=== PATIENT | male | born 1970 | race African-American/Black ===

== ENCOUNTER 2017-09-19 23:02 | Emergency (ER) | payer MEDICAID ==
[~2017-09-19] VITALS: Ht 172.7 cm; Wt 68.0 kg
--- NOTE | 2017-09-19 23:33 | NUR ---
PT AA/OX4. COMPLAINING OF SUICIDAL THOUGHTS. NO S/S OF SOB. NAD. VSS. WILL CONTINUE TO MONITOR. SAFETY MEASURES IN PLACE. CALL LIGHT WITHIN REACH. AWAITING MD ORDERS. Addendum: 09/19/17 at 2337 by LETICIA DANGER TO SELF
[2017-09-19 23:40] LABS: BASOPHILS % (AUTO) 0.5 % (0.0-2.0); EOSINOPHILS % (AUTO) 1.1 % (0.0-6.0); HEMATOCRIT 43 % (39-51); HEMOGLOBIN 13.9 g/dL (13.5-17.5); LYMPHOCYTES # (AUTO) 2.2 /CMM (0.8-4.8); LYMPHOCYTES % (AUTO) 32.2 % (20.0-44.0); MEAN CORPUSCULAR HEMOGLOBIN 33 PG (26.0-33.0); MEAN CORPUSCULAR HGB CONC 33 g/dl (31.0-36.0); MEAN CORPUSCULAR VOLUME 102 fL (80-96); MONOCYTES # (AUTO) 0.4 /CMM (0.1-1.30); MONOCYTES % (AUTO) 5.1 % (2.0-12.0); NEUTROPHILS # (AUTO) 4.3 /CMM (1.8-8.9); NEUTROPHILS % (AUTO) 61.1 % (43.0-81.0); PLATELET COUNT (AUTO) 260 /CMM (150-450)
[2017-09-19 23:42] LABS: APPEARANCE,URINE CLEAR (CLEAR); BILIRUBIN,URINE NEGATIVE (NEGATIVE); BLOOD, URINE NEGATIVE Ery/uL (NEGATIVE); COLOR,URINE YELLOW (YELLOW); KETONES,URINE TRACE (NEGATIVE); LEUKOCYTE ESTERASE ,URINE NEGATIVE (NEGATIVE); NITRITE, URINE NEGATIVE (NEGATIVE); PROTEIN,URINE NEGATIVE (NEGATIVE); UGLUCOSE NEGATIVE (NEGATIVE); UROBILINOGEN,URINE 0.2 EU/dL (0.2)
[2017-09-19 23:47] LABS: BACTERIA,URINE None seen /HPF (None Seen); RBC,URINE 0-2 /HPF (0-2); WBC,URINE 0-2 /HPF (0-3)
[2017-09-19 23:48] LABS: MUCUS,URINE Moderate /LPF (None Seen); SQUAMOUS EPITHELIAL CELL,UR Few /HPF (None Seen)
[2017-09-20 00:17] LABS: ALBUMIN 4.2 g/dL (3.4-5.0); BILIRUBIN,DIRECT 0.1 mg/dL (0.0-0.2); BILIRUBIN,TOTAL 0.5 mg/dL (0.2-1.0); CREATININE 0.8 mg/dL (0.6-1.3); POTASSIUM 3.8 mmol/L (3.5-5.1); SALICYLATE 3.9 mg/dL (2.8-20.0); TOTAL PROTEIN, SERUM 7.8 g/dL (6.4-8.2)
--- NOTE | 2017-09-20 00:45 | NUR ---
Patient is resting comfortably in bed with eyes closed. Easily aroused. VSS
--- NOTE | 2017-09-20 03:26 | NUR ---
PT CONTINUES TO REST COMFORTABLY. VSS. NAD. STABLE CONDITION. EASILY AROUSED.
[2017-09-20 04:54] VITALS: BP 118/76
--- NOTE | 2017-09-20 04:55 | NUR ---
SITTING UP IN BED. STABLE CONDITION. VSS. NAD. SAFETY MEASURES IN PLACE. WILL CONTINUE TO MONITOR.
--- NOTE | 2017-09-20 07:14 | NUR ---
endorsed to oncoming am shift rn feb. pt stable condition. vss. nad.
--- NOTE | 2017-09-20 07:30 | NUR ---
pt was not found in bed during rounds.
== END 2017-09-20 08:26 | disposition left against medical advice (07) ==
LOC: ER 23:08
DX: F19.10 Other psychoactive substance abuse, uncomplicated (principal); R45.851 Suicidal ideations; R45.850 Homicidal ideations
CPT/HCPCS: 36415; 80048; 80076; 80305; 80329; 81001; 85025; 99284; A4606; G0480 ×2; Z7610; 81000-TC

== ENCOUNTER 2020-03-31 18:16 | Emergency (ER) | payer MEDICAID ==
[~2020-03-31] VITALS: Ht 172.7 cm; Wt 56.7 kg
--- NOTE | 2020-03-31 18:16 | NUR ---
PT [address] C/O ETOH. PT IS AAOX4, NOT IN RESPIRATORY DISTRESS, HOOKED TO PIERCE AND SHAVE PRESS OPERATOR, KEPT RESTED AND COMFORTABLE. WILL CONTINUE TO MONITOR.
--- NOTE | 2020-03-31 18:39 | NUR ---
SEEN AND EXAMINED BY .
--- NOTE | 2020-03-31 19:39 | NUR ---
Patient discharged to home in stable condition. Written and verbal after care instructions given. Patient verbalizes understanding of instruction. ambulatory with a steady gait.
[2020-03-31 19:40] VITALS: BP 134/62
[2020-04-01] MEDS ORDERED: TRAZ150T75 PO (09:50)
[2020-04-01] MEDS ORDERED: LISI20TA30 PO (09:50)
[2020-04-01] MEDS ORDERED: IBUP-1955 PO (10:01)
== END 2020-03-31 19:40 | disposition home or self-care (01) ==
LOC: ER 18:21
DX: F41.9 Anxiety disorder, unspecified (principal); I10 Essential (primary) hypertension; F31.9 Bipolar disorder, unspecified; F20.9 Schizophrenia, unspecified; F10.10 Alcohol abuse, uncomplicated; Y90.9 Presence of alcohol in blood, level not specified; Z02.89 Encounter for other administrative examinations

== ENCOUNTER 2020-04-01 17:25 | Emergency (ER) | payer MEDICAID ==
[~2020-04-01] VITALS: Ht 172.7 cm; Wt 57.2 kg
[~2020-04-01 17:25] MED LIST changes: -KETOROLAC TROMETHAMINE 15 MG/ML VIAL ONE
--- NOTE | 2020-04-01 17:33 | NUR ---
Patient bibra, c/o chest pain. transferred to bed. Patient a/ox4, breathing even and unlabored, no sob noted, needs attended.
--- NOTE | 2020-04-01 18:00 | NUR ---
TOUCH UP WORKER AT BEDSIDE FOR BLOOD DRAW
[2020-04-01 18:19] LABS: BASOPHILS # (AUTO) 0.1 /CMM (0.0-0.2); BASOPHILS % (AUTO) 1.5 % (0.0-2.0); EOSINOPHILS % (AUTO) 1.4 % (0.0-6.0); HEMATOCRIT 49 % (39-51); HEMOGLOBIN 16.5 g/dL (13.5-17.5); LYMPHOCYTES # (AUTO) 1.7 /CMM (0.8-4.8); LYMPHOCYTES % (AUTO) 28.2 % (20.0-44.0); MEAN CORPUSCULAR HGB CONC 34 g/dl (31.0-36.0); MEAN CORPUSCULAR VOLUME 91 fL (80-96); MONOCYTES # (AUTO) 0.3 /CMM (0.1-1.30); MONOCYTES % (AUTO) 5.1 % (2.0-12.0); NEUTROPHILS # (AUTO) 3.9 /CMM (1.8-8.9); NEUTROPHILS % (AUTO) 63.8 % (43.0-81.0); PLATELET COUNT (AUTO) 360 /CMM (150-450); RED BLOOD CELL COUNT(AUTO) 5.36 MIL/uL (4.5-6.0); WHITE BLOOD COUNT (AUTO) 6.1 K/uL (4.3-11.0)
[2020-04-01 18:24] LABS: ALCOHOL, BLOOD 401 mg/dL (0-0); CARBON DIOXIDE 24 mmol/L (21-32); CHLORIDE 97 mmol/L (98-107); CREATININE 0.8 mg/dL (0.6-1.3); GLUCOSE 160 mg/dL (74-106); POTASSIUM 4.1 mmol/L (3.5-5.1); SODIUM SERUM 136 mmol/L (136-145); UREA NITROGEN, BLOOD 11 mg/dL (7-18)
[2020-04-01] MEDS ORDERED: IV NS 0.9% 1,000 ML BAG IV ONE (19:00)
[2020-04-01] MEDS ORDERED: IOHEXOL-350 100 ML VIAL IV ONE ×2 (19:09→22:14)
--- NOTE | 2020-04-01 19:11 | NUR ---
IV LINE ESTABLISHED, FLUIDS STARTED.
--- NOTE | 2020-04-01 20:12 | NUR ---
NOT ABLE TO INSERT IV. ADILIA CHAMBERLAIN AWARE.
--- NOTE | 2020-04-01 22:05 | NUR ---
BROUGHT TO CT
[2020-04-01] MEDS ORDERED: IV NS 0.9% 250 ML IV ONE (22:14)
--- NOTE | 2020-04-01 22:52 | NUR ---
IV removed. Catheter intact and site benign. Pressure and 4x4 applied to site. No bleeding noted.
--- NOTE | 2020-04-01 23:00 | NUR ---
Patient discharged to home in stable condition. Written and verbal after care instructions given. Patient verbalizes understanding of instruction. Pt left without paperwork.
[2020-04-02 01:08] VITALS: BP 121/72
== END 2020-04-02 01:09 | disposition home or self-care (01) ==
LOC: ER 17:32
DX: F10.129 Alcohol abuse with intoxication, unspecified (principal); R07.89 Other chest pain; R00.0 Tachycardia, unspecified; F31.9 Bipolar disorder, unspecified; F41.9 Anxiety disorder, unspecified; F20.9 Schizophrenia, unspecified; I10 Essential (primary) hypertension; Y90.8 Blood alcohol level of 240 mg/100 ml or more; Z60.2 Problems related to living alone; Z79.899 Other long term (current) drug therapy; Z59.0 Homelessness
CPT/HCPCS: 36410; 36415; 71045; 71275; 80048; 80320; 84484; 85025; 85378; 93005; 96360; 99285; J7030; J7050; Q9967 ×2; G0480

== ENCOUNTER → 2020-04-01 | Emergency (ER) | payer MEDICAID ==
[~2020-04-01] VITALS: Ht 172.7 cm; Wt 57.2 kg
[~2020-04-01] MED LIST: IBUP-1955 PO; KETOROLAC TROMETHAMINE 15 MG/ML VIAL ONE; LISI20TA30 PO; TRAZ150T75 PO
--- NOTE | 2020-04-01 09:02 | NUR ---
refusing iv insertion. labor relations worker at bedside for blood draw.
--- NOTE | 2020-04-01 09:27 | NUR ---
radiology at bedside for chest x ray.
[2020-04-01 09:51] LABS: BASOPHILS % (AUTO) 0.4 % (0.0-2.0); EOSINOPHILS % (AUTO) 0.4 % (0.0-6.0); HEMATOCRIT 51 % (39-51); HEMOGLOBIN 17.2 g/dL (13.5-17.5); LYMPHOCYTES # (AUTO) 1.4 /CMM (0.8-4.8); LYMPHOCYTES % (AUTO) 24.7 % (20.0-44.0); MEAN CORPUSCULAR HGB CONC 34 g/dl (31.0-36.0); MEAN CORPUSCULAR VOLUME 91 fL (80-96); MONOCYTES # (AUTO) 0.3 /CMM (0.1-1.30); MONOCYTES % (AUTO) 6.1 % (2.0-12.0); NEUTROPHILS # (AUTO) 3.9 /CMM (1.8-8.9); NEUTROPHILS % (AUTO) 68.4 % (43.0-81.0); PLATELET COUNT (AUTO) 307 /CMM (150-450); RED BLOOD CELL COUNT(AUTO) 5.55 MIL/uL (4.5-6.0); WHITE BLOOD COUNT (AUTO) 5.7 K/uL (4.3-11.0)
[2020-04-01 10:04] LABS: CARBON DIOXIDE 26 mmol/L (21-32); CHLORIDE 98 mmol/L (98-107); SODIUM SERUM 142 mmol/L (136-145)
[2020-04-01 10:05] LABS: CALCIUM, SERUM 9.4 mg/dL (8.5-10.1); CREATININE 0.8 mg/dL (0.6-1.3); GLUCOSE 149 mg/dL (74-106); UREA NITROGEN, BLOOD 10 mg/dL (7-18)
[2020-04-01] MEDS: KETOROLAC TROMETHAMINE INJ 30 MG/ML VIAL IV ONE (10:52)
--- NOTE | 2020-04-01 13:01 | NUR ---
discharged pt , pt vs stable , afebrile , denies chest pain and sob at this time , ambulatory with steady gait , discharge instructions and prescription given pt verbalized understanding ,
[2020-04-01 13:12] VITALS: BP 135/56
== END ==
LOC: ER 08:54
DX: R07.89 Other chest pain (principal); F10.129 Alcohol abuse with intoxication, unspecified; I10 Essential (primary) hypertension; F31.9 Bipolar disorder, unspecified; F20.9 Schizophrenia, unspecified; F41.9 Anxiety disorder, unspecified; R00.0 Tachycardia, unspecified; Y90.8 Blood alcohol level of 240 mg/100 ml or more; Z60.2 Problems related to living alone; Z79.899 Other long term (current) drug therapy
CPT/HCPCS: 36415; 71045; 80048; 80307; 80320; 84484 ×2; 85025; 93005 ×2; 96372; 99285; J1885; G0480